=== PATIENT | male | born 1960 | race Caucasian/White ===

== ENCOUNTER 2020-07-23 10:09 | Emergency (ER) | payer BC ==
[~2020-07-23] VITALS: Ht 180.3 cm; Wt 109.0 kg
[~2020-07-23 10:09] MED LIST: AMIO100T4 PO; DABI75CA3 PO; IBUP-1060 PO; WARF4TAB64 PO
[2020-07-23 10:20] VITALS: BP 140/73
--- NOTE | 2020-07-23 11:14 | ED.ADGEN ---
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 Pain is been going on for months and he denies any injury. Saw his primary care provider and was prescribed anti-inflammatories and has an orthopedic consultation in 2 days. 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 No pain with range of motion without weightbearing. Denies any swelling of his lower extremity or history of blood clots. Denies any trauma or falls. Review of Systems Review of Systems Constitutional: Denies fever or chills. [] Eyes: Denies change in visual acuity. [] HENT: Denies nasal congestion or sore throat. [] Respiratory: Denies cough or shortness of breath. [] Cardiovascular: Denies chest pain or edema. [] GI: Denies abdominal pain, nausea, vomiting, bloody stools or diarrhea. [] : Denies dysuria. [] Musculoskeletal: left knee joint pain. [] Integument: Denies rash. [] Neurologic: Denies headache, focal weakness or sensory changes. [] Endocrine: Denies polyuria or polydipsia. [] Lymphatic: Denies swollen glands. [] Psychiatric: Denies depression or anxiety. [] Allergies Allergies Allergies Coded Allergies Type Severity Reaction Last Updated Verified No Known Drug Allergies 03/07/14 No Physical Exam Physical Exam Constitutional: Well developed, well nourished, no acute distress, non-toxic appearance. [] HENT: Normocephalic, atraumatic, bilateral external ears normal, oropharynx moist, no oral exudates, nose normal. [] Eyes: PERRLA, EOMI, conjunctiva normal, no discharge. [] Neck: Normal range of motion, no tenderness, supple, no stridor. [] Cardiovascular:Heart rate regular rhythm, no murmur [] Lungs & Thorax: Bilateral breath sounds clear to auscultation [] Abdomen: Bowel sounds normal, soft, no tenderness, no masses, no pulsatile masses. [] Skin: Warm, dry, no erythema, no rash. [] Back: No tenderness, no CVA tenderness. [] Extremities: Left joint line tenderness no soft movement of the patella, no laxity talar fossa swelling or joint swelling. No pain with passive range of motion Neurologic: Alert and oriented X 3, normal motor function, normal sensory function, no focal deficits noted. [] Psychologic: Affect normal, judgement normal, mood normal. [] Current Patient Data Vital Signs Vital Signs Date Time Temp Pulse Resp B/P (MAP) Pulse Ox O2 Delivery O2 Flow Rate FiO2 07/23/20 10:20 98.4 72 16 140/73 (95) 100 Room Air 98.4 EKG EKG [] Radiology/Procedures Radiology/Procedures EXAMINATION: CT LOWER EXTREMITY WO LEFT, 07/23/2020 11:28 AM CLINICAL INDICATION: Left patellar fracture COMPARISON: Left knee radiograph same day TECHNIQUE: Helical CT imaging performed of the left lower extremity without the use of intravenous contrast. Sagittal and coronal reformats were obtained. One or more of the following individualized dose reduction techniques were utilized for this examination: 1. Automated exposure control 2. Adjustment of the mA and/or kV according to patient size 3. Use of iterative reconstruction technique. FINDINGS: The inferior patellar pole fracture has corticated margins consistent with an old fracture. There is no acute fracture. Joint spaces are maintained. There are tiny lateral compartment osteophytes. Cruciate and collateral ligament are grossly intact. Patellar and quadriceps tendons are intact. There is a small osteoarthrosis. Soft tissues normal. IMPRESSION: 1. No acute fracture. 2. Old inferior patellar pole fracture. [] Course & Med Decision Making Course & Med Decision Making Pertinent Labs and Imaging studies reviewed. 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 [] Dragon Disclaimer Dragon Disclaimer This electronic medical record was generated, in whole or in part, using a voice recognition dictation system. Departure Departure Impression: Primary Impression: Fracture of patella, left, closed Disposition: HOME, SELF-CARE Condition: STABLE Referrals: UNKNOWN PCP NAME (PCP) CONSUELO HAWKINS Jr. Patient Instructions: Knee - Patella Problems Scripts Tramadol Hcl (TRAMADOL HCL) 50 Mg Tablet 50 MG PO DAILY PRN for PAIN for 3 Days, #15 TAB 0 Refills Prov: ANITA ESTEBAN MD 07/23/20 ANITA ESTEBAN MD Jul 23, 2020 11:14
--- NOTE | 2020-07-23 11:22 | RAD ---
EXAM: KNEE LEFT 3V 07/23/2020 10:52 AM CLINICAL INDICATION:Left knee pain for months, no known injury COMPARISON:None TECHNIQUE:3 views of the left FINDINGS:There is a fracture of the inferior patellar pole. The fracture fragment measures 1.2 x 1.0 cm and is displaced inferiorly by 5 mm. Some of the margins appear corticated, which may indicate this is subacute or old. There is no definite other fracture. Joint spaces are maintained. A lipohemarthrosis is noted. IMPRESSION:Inferior patellar pole fracture. This could be old however there is a lipohemarthrosis suggesting the presence of an acute fracture. CT could be obtained to further evaluate the patellar fracture and to exclude occult tibial plateau fracture. Electronically signed by: Debbie Silvestre MD (07/23/2020 11:19 AM) [id number]
--- NOTE | 2020-07-23 12:20 | RAD ---
EXAMINATION: CT LOWER EXTREMITY WO LEFT, 07/23/2020 11:28 AM CLINICAL INDICATION: Left patellar fracture COMPARISON: Left knee radiograph same day TECHNIQUE: Helical CT imaging performed of the left lower extremity without the use of intravenous contrast. Sagittal and coronal reformats were obtained. One or more of the following individualized dose reduction techniques were utilized for this examination: 1. Automated exposure control 2. Adjustment of the mA and/or kV according to patient size 3. Use of iterative reconstruction technique. FINDINGS: The inferior patellar pole fracture has corticated margins consistent with an old fracture. There is no acute fracture. Joint spaces are maintained. There are tiny lateral compartment osteophytes. Cruciate and collateral ligament are grossly intact. Patellar and quadriceps tendons are intact. There is a small osteoarthrosis. Soft tissues normal. IMPRESSION: 1. No acute fracture. 2. Old inferior patellar pole fracture. Electronically signed by: Debbie Silvestre MD (07/23/2020 12:17 PM) [id number]
[2020-07-23] MEDS ORDERED: TRAM50TA PO (12:33)
== END 2020-07-23 13:11 | disposition home or self-care (01) ==
LOC: ER 10:09
DX: S82.092A Other fracture of left patella, initial encounter for closed fracture (principal); R60.0 Localized edema; I48.91 Unspecified atrial fibrillation; F17.200 Nicotine dependence, unspecified, uncomplicated; Z98.890 Other specified postprocedural states; Z85.828 Personal history of other malignant neoplasm of skin; X58.XXXA Exposure to other specified factors, initial encounter; Y93.89 Activity, other specified; Y92.89 Other specified places as the place of occurrence of the external cause; Y99.0 Civilian activity done for income or pay
CPT/HCPCS: 29505; 73562; 73700; 99284

== ENCOUNTER → 2020-08-02 | Outpatient (CLI) | payer BC ==
[2020-07-23 10:20] VITALS: BP 140/73
[~2020-08-02] MED LIST changes: +TRAM50TA PO
--- NOTE | 2020-08-02 14:13 | KCIC ---
EXAM: MRI LEFT KNEE DATE: 08/02/2020 12:30 PM CLINICAL INDICATION: Reason: LEFT KNEE PAIN / Spl. Instructions: CT of the left knee thru the ER recently. / History: Left knee pain medially in recent months. COMPARISON: CT left knee 07/23/2020 TECHNIQUE: Multiplanar, multisequence MRI of the left knee was performed without contrast. FINDINGS: Moderate left knee joint effusion. No Bailey's cyst. ACL and PCL are intact. The MCL, fibular collateral ligament, biceps femoris and IT band are intact. Popliteus is normal in signal and morphology, intact. Medial meniscus: Partial-thickness radial tear within the posterior extending to the body segment. Radial tear is also seen within the posterior horn to the root. There is also extrusion of the body segment approximately 7 mm. Lateral meniscus: Intact No fracture or osteonecrosis. Deformity at the inferior pole the patella likely from old fracture. Borderline lateral patellar tracking. Extensor mechanism is intact. Intermittent chondral thinning patellofemoral compartment and lateral tibial plateau without discrete full-thickness defect or significant subchondral edema. IMPRESSION: 1. Partial-thickness radial tear posterior horn-body medial meniscus extends to the root, without definite root avulsion. Associated extrusion of the body segment medial meniscus. 2. Patellofemoral and lateral compartment chondromalacia. 3. Moderate left knee joint effusion. Electronically signed by: Yaron Kamara MD (08/02/2020 2:10 PM) [id number]
== END ==
LOC: KCIC MRI 12:41
PROVIDERS: ATTEND Physician Assistant
DX: S83.242D Other tear of medial meniscus, current injury, left knee, subsequent encounter (principal); M25.462 Effusion, left knee; M94.262 Chondromalacia, left knee; X58.XXXD Exposure to other specified factors, subsequent encounter
CPT/HCPCS: 73721

== ENCOUNTER → 2020-08-14 | Outpatient (CLI) | payer BC ==
[2020-07-23 10:20] VITALS: BP 140/73
[~2020-08-14] MED LIST changes: +HYDR-3165 PO
== END ==
LOC: LAB 13:04
PROVIDERS: ATTEND Orthopaedic Surgery
DX: Z01.812 Encounter for preprocedural laboratory examination (principal); Z20.828 Contact with and (suspected) exposure to other viral communicable diseases
CPT/HCPCS: U0003

== ENCOUNTER 2020-08-17 09:41 | Day surgery (SDC) | payer BC ==
[~2020-08-17] VITALS: Ht 180.3 cm; Wt 114.8 kg
[~2020-08-17 09:41] MED LIST changes: +BUPIVACAINE-EPI 0.5%-1:200000 MPF 30 ML VIAL. INJ ONE; -HYDR-3165 PO; +HYDROmorphone 2 MG/ML VIAL IVP PRN; +IV RINGERS,LACTATED 1000ML 1,000 ML IV SCH; +LIDOCAINE 1% PF 2 ML VIAL. ID PRN; +MORPHINE SULFATE 2 MG/ML VIAL. IVP PRN; +ONDANSETRON PF 4 MG/2 ML VIAL. IVP PRN; +PROCHLORPERAZINE 10 MG/2 ML VIAL. IVP PRN; +fentaNYL PF VIAL 100 MCG/2 ML VIAL IVP PRN
[2020-08-17] MEDS ORDERED: fentaNYL PF VIAL 100 MCG/2 ML VIAL ONE ×2 (09:56→11:48)
[2020-08-17] MEDS ORDERED: LIDOCAINE 2% PF 5 ML VIAL. ONE (09:56)
[2020-08-17] MEDS ORDERED: PROPOFOL 10 MG/ML (20ML) VIAL. IV ONE (09:56)
[2020-08-17] MEDS ORDERED: SEVOFLURANE 31 TO 60 MINUTES. IH ONE (11:01)
[2020-08-17] MEDS ORDERED: DEXAMETHASONE SOD PHOS 4 MG/ML VIAL ONE (11:01)
[2020-08-17] MEDS ORDERED: ONDANSETRON PF 4 MG/2 ML VIAL. ONE (11:01)
[2020-08-17] MEDS ORDERED: KETOROLAC 30 MG/ML VIAL. ONE (11:17)
[2020-08-17] MEDS ORDERED: HYDROcodone/APAP 7.5/325MG 1 TAB TABLET PO ONE (12:00)
[2020-08-17] MEDS ORDERED: HYDR-3165 PO (12:11)
--- NOTE | 2020-08-17 12:13 | DISCH ---
DISCHARGE INSTRUCTIONS Condition on Discharge Condition on Discharge: Stable Activity After Discharge Activity Instructions for Disc: Activity as tolerated Weight Bearing Status after Di: As tolerated Diet after Discharge Diet after Discharge: Cardiac, Regular Diet Texture: Regular Wound Incision Care Wound/Incision Care: Ice to area for comfort, Change dressing (Remove dressing in 2 days may then shower no soaking until sutures removed) Checks after Discharge DC Comment: Report any deep calf tenderness or severe persistent increasing sw elling Contacting the DRNaomi after DC Call your doctor for: Concerns you may have Follow-Up Follow up with: Dr. Paige 10 days Treatment/Equipment after DC Adaptive Equipment Issued: None AYSHA PAIGE MD Aug 17, 2020 12:12
[2020-08-17 12:15] VITALS: BP 104/65
--- NOTE | 2020-08-17 12:35 | PDOC4 ---
Operative Note Operative Note Date of surgery: 08/17/2020 Preoperative diagnosis: Left knee meniscal tear Postoperative diagnosis same with medial meniscal tear and and grade III chondromalacia patella Operative procedure: Left knee arthroscopy partial medial meniscectomy and chondroplasty patella Surgeon: Grecia Natural Developer: Conrad rios assist Anesthesia: General Estimated blood loss: 5 cc Complications: None Operative indications: Please see my orthopedic clinic note for detailed operative indications and note that Pk had had knee pain swelling and mechanical symptoms unresponsive to nonoperative management and MRI showed the concern for a meniscal tear which seem to correlate with her mechanical symptoms . We had gone over risks benefits postoperative course of knee arthroscopy addressing a meniscal tear and any other pathology present with the caution that I really cannot effectively undo wear and tear type changes in the knee. We talked about the possibility of infection blood clots nerve or blood vessel damage continued pain medical or other anesthetic complications among others she agrees to proceed Operative text: Patient was identified procedure verified patient placed in the supine position on the operative table. After adequate amounts of general anesthesia were administered the left lower extremity was prepped and draped in standard sterile fashion and after timeout was performed patient procedure identified and verified the left lower extremity was exsanguinated by Esmarch bandage tourniquet inflated to 300 mmHg a lateral portal established medial portal established using spinal needle localization and the knee joint was systematically examined. He was noted to have a tear at the posterior horn extending to the root of the medial meniscus which was trimmed back to stable tissue and appropriately radiused to avoid stress risers. He did have grade III chondromalacia of the patella and any loose fronds of cartilage were lightly debrided back to stable tissue with the arthroscopic shaver. ACL was probed and found to be intact he did have minimal free edge fraying of the lateral meniscus as well which was trimmed back to stable tissue with the arthroscopic shaver lateral compartment cartilage was noted to be in good condition. The knee was evacuated of arthroscopic fluid injected with 30 cc of half percent Marcaine with epinephrine portals were closed with nylon suture sterile dressings were applied toes were noted to be warm pink following deflation of the tourniquet patient was returned to recovery room in stable condition having tolerated the procedure well. Conrad rios assist assisted in the patient positioning prepping draping closure and dressings PK COLLADO MD Aug 17, 2020 12:35
== END 2020-08-17 12:59 | disposition home or self-care (01) ==
LOC: SURG 09:41
PROVIDERS: ATTEND Orthopaedic Surgery
DX: S83.242A Other tear of medial meniscus, current injury, left knee, initial encounter (principal); M22.42 Chondromalacia patellae, left knee; F17.210 Nicotine dependence, cigarettes, uncomplicated; X58.XXXA Exposure to other specified factors, initial encounter; Y93.89 Activity, other specified; Y92.89 Other specified places as the place of occurrence of the external cause; Y99.8 Other external cause status
CPT/HCPCS: 29881; A7015; J0690; J1100; J1885; J2405; J2704; J3010

== ENCOUNTER → 2021-10-07 | Outpatient (CLI) | payer BC ==
[~2021-10-07] MED LIST changes: -BUPIVACAINE-EPI 0.5%-1:200000 MPF 30 ML VIAL. INJ ONE; +HYDR-3165 PO; -HYDROmorphone 2 MG/ML VIAL IVP PRN; -IV RINGERS,LACTATED 1000ML 1,000 ML IV SCH; -LIDOCAINE 1% PF 2 ML VIAL. ID PRN; -MORPHINE SULFATE 2 MG/ML VIAL. IVP PRN; -ONDANSETRON PF 4 MG/2 ML VIAL. IVP PRN; -PROCHLORPERAZINE 10 MG/2 ML VIAL. IVP PRN; -fentaNYL PF VIAL 100 MCG/2 ML VIAL IVP PRN
--- NOTE | 2021-10-07 17:29 | RAD ---
MR#: [id number] Date of Study: 10/07/2021 Ordering Physician: SEGUNDO FLORES Referring Physician: MATTHEW GARCIA Tech: APPROVED REPORT Test Type: Exercise Stress Nurse/Tech: Heather Hernandez RN Test Indications: A-fib ablation 2 years ago, DOT physical Cardiac History: a-fib ablation 2019 Medications: See Electronic Medical Record Medical History: See Electronic Medical Record Resting ECG: SR with BBB Resting Heart Rate: 68 bpm Resting Blood Pressure: 120/66mmHg Pretest Chest Pain: No chest pain Nurse/Tech Notes S1,S2 and lungs clear to auscultation. Consent: The procedure was explained to the patient in lay terms. Informed consent was witnessed. Rohit eout was entered into [facility]. History and Stress Test performed by RT Steven (R) (N) Stress Symptoms No chest pain or symptoms. POST EXERCISE Reason for Termination: Reached target heart rate, Fatigue Target HR: Yes Max HR: 191 bpm 94% of Maximum Predicted HR: 151 bpm Exercise duration: 6:25 min:sec, 3 Stage Exercise capacity: 10.0METs Max Blood Pressure: 150/60mmHg Blood Pressure response to exercise: Normal blood pressure response during stress. Heart Rate response to exercise: WNL Chest Pain: No. Arrhythmia: No. ST Change: No. INTERPRETATION Stress EKG Conclusion: The resting EKG showed a sinus rhythm with an incomplete right bundle branch b lock. The stress EKG showed no significant changes from baseline. No EKG evidence of stress-induced ischemia. Conclusion 1. 1. Good exercise tolerance. 2. 2. No chest pain reported with exertion. 3. 3. No EKG evidence of stress-induced ischemia or arrhythmias. 4. 4. Moderately low risk treadmill stress test. Signed by : Segundo Flores MD Electronically Approved : 10/07/2021 17:29:13
== END ==
LOC: NM 13:25
PROVIDERS: ATTEND Internal Medicine Cardiovascular Disease
DX: I48.91 Unspecified atrial fibrillation (principal)
CPT/HCPCS: 93017